=== PATIENT | female | born 1935 | race Two or more races ===

== ENCOUNTER 2018-04-25 09:47 | Inpatient (IN) | payer MEDICARE, OTHER ==
[~2018-04-25] VITALS: Ht 157.5 cm; Wt 68.0 kg
--- NOTE | 2018-04-25 09:47 | NUR ---
PT BIB SISTER C/O SOB, PT IS AAOX3, NOT IN RESPIRATORY DISTRESS, NOTED ELVATED BP, HOOKED TO MONITOR KEPT RESTED AND COMFORTABLE. WILL CONTINUE TO MONITOR.
--- NOTE | 2018-04-25 09:49 | NUR ---
DR. BRASHER AT BEDSIDE FOR EVAL.
--- NOTE | 2018-04-25 10:09 | NUR ---
IV LINE ESTABLISHED, LABSDRAWNED AND SENT TO LAB. AWAITING RESULTS.
[2018-04-25 10:26] LABS: BASOPHILS % (AUTO) 0.8 % (0.0-2.0); EOSINOPHILS % (AUTO) 4.2 % (0.0-6.0); HEMATOCRIT 37 % (33-45); HEMOGLOBIN 12.5 g/dL (11.5-14.8); LYMPHOCYTES # (AUTO) 1.2 /CMM (0.8-4.8); LYMPHOCYTES % (AUTO) 27.8 % (20.0-44.0); MEAN CORPUSCULAR HGB CONC 34 g/dl (31.0-36.0); MEAN CORPUSCULAR VOLUME 91 fL (82-100); MONOCYTES # (AUTO) 0.3 /CMM (0.1-1.30); MONOCYTES % (AUTO) 6.7 % (2.0-12.0); NEUTROPHILS # (AUTO) 2.7 /CMM (1.8-8.9); NEUTROPHILS % (AUTO) 60.5 % (43.0-81.0); PLATELET COUNT (AUTO) 192 /CMM (150-450); RED BLOOD CELL COUNT(AUTO) 4.08 MIL/uL (4.0-5.2); WHITE BLOOD COUNT (AUTO) 4.4 K/uL (4.3-11.0)
--- NOTE | 2018-04-25 10:32 | NUR ---
SHAFT MECHANIC AT BEDSIDE FOR XRAY.
[2018-04-25 11:12] LABS: CALCIUM, SERUM 9.3 mg/dL (8.5-10.1); CARBON DIOXIDE 25 mmol/L (21-32); CHLORIDE 104 mmol/L (98-107); CREATININE 1.5 mg/dL (0.6-1.3); GLUCOSE 332 mg/dL (74-106); POTASSIUM 4.2 mmol/L (3.5-5.1); SODIUM SERUM 137 mmol/L (136-145); UREA NITROGEN, BLOOD 30 mg/dL (7-18)
[2018-04-25 11:17] LABS: ALANINE AMINOTRANSFERASE 26 U/L (12-78); ALBUMIN 3.7 g/dL (3.4-5.0); ALKALINE PHOSPHATASE 113 U/L (46-116); ASPARTATE AMINOTRANSFERASE 15 U/L (15-37); BILIRUBIN,DIRECT 0.1 mg/dL (0.0-0.2); BILIRUBIN,TOTAL 0.3 mg/dL (0.2-1.0); TOTAL PROTEIN, SERUM 7.5 g/dL (6.4-8.2)
[2018-04-25 11:50] LABS: APPEARANCE,URINE Clear (CLEAR); BILIRUBIN,URINE Negative (NEGATIVE); BLOOD, URINE Negative Ery/uL (NEGATIVE); COLOR,URINE Yellow (YELLOW); KETONES,URINE Negative (NEGATIVE); LEUKOCYTE ESTERASE ,URINE Trace (NEGATIVE); NITRITE, URINE Negative (NEGATIVE); PH,URINE 5.5 (5.0-8.0); PROTEIN,URINE Negative (NEGATIVE); UGLUCOSE 500 MG/DL mg/dL (NEGATIVE); UROBILINOGEN,URINE 0.2 EU/dL (0.2)
[2018-04-25 11:58] LABS: BACTERIA,URINE 1+ /HPF (None Seen); RBC,URINE NONE SEEN /HPF (0-2); SQUAMOUS EPITHELIAL CELL,UR Few /HPF (None Seen)
--- NOTE | 2018-04-25 12:11 | NUR ---
CALLED NURSING SUP REQUESTED TELE BED
[2018-04-25] MEDS ORDERED: GLIP10TA11 PO (12:42)
[2018-04-25] MEDS ORDERED: LIPA1CAP15 PO (12:42)
[2018-04-25] MEDS ORDERED: ATOR40TA PO (12:42)
[2018-04-25] MEDS ORDERED: SITA100T PO (12:42)
[2018-04-25] MEDS ORDERED: METF-442 PO (12:42)
[2018-04-25] MEDS ORDERED: BENA10TA9 PO (12:42)
--- NOTE | 2018-04-25 12:46 | NUR ---
ADMIT TO TELE ROOM 323-2 DX SOB ACCEPTING LIZZ BROWN
--- NOTE | 2018-04-25 13:02 | NUR ---
REPORT GIVEN TO DUKE MICHEL FOR BLAYNE.
--- NOTE | 2018-04-25 13:25 | NUR ---
NYLON OPERATOR NOTES RECEIVED PT FROM E.R. STAFF VIA TAYLOR, AWAKE, ALERT AND ORIENTED, PT ABLE TO WALK TO BED, WITH STEADY GAIT, ASSISTED TO BED, MADE COMFORTABLE, PT ACCOMPANIED BY SISTER IZABELA, ROOM SET UP ORIENTATION PROVIDED TO PT, VERBALIZED UNDERSTANDING, VITAL SIGNS TAKEN AND RECORDED, AWAITING ADMITTING ORDERS FROM DR. BROWN.
[2018-04-25 13:30] VITALS: BP 158/84
[2018-04-25 16:00] VITALS: BP 136/78
--- NOTE | 2018-04-25 17:00 | NUR ---
PRODUCTION STAFF WORKER NOTES RECEIVED ORDER FROM MD TO START ACCUCHECK WITH MILD SLIDING SCALE, STILL AWAITING OTHER ADMITTING ORDERS FROM DR. BROWN.
[2018-04-25] MEDS ORDERED: DEXTROSE 50%-WATER 50 ML DISP.SYRIN IV PRN (17:30)
[2018-04-25] MEDS: BLOOD SUGAR DIAGNOSTIC 1 EACH STRIP IN SCH ×2 (17:35→21:50)
[2018-04-25] MEDS ORDERED: IV NS 0.9% 1,000 ML IV PRN (18:12)
[2018-04-25] MEDS: INSULIN REGULAR, HUMAN 100 UNIT/ML 3 ML VIAL SQ PRN (18:13)
[2018-04-25] MEDS ORDERED: ENOXAPARIN SODIUM 40 MG/0.4 ML DISP.SYRIN SQ SCH (18:30)
[2018-04-25] MEDS ORDERED: Z GUARD REMEDY 2 OZ OINT TP PRN (18:30)
[2018-04-25] MEDS ORDERED: ONDANSETRON HCL/PF 4 MG/2 ML VIAL IVP PRN (18:30)
[2018-04-25] MEDS ORDERED: ACETAMINOPHEN 325 MG TABLET PO PRN (18:30)
--- NOTE | 2018-04-25 18:31 | NUR ---
ORE SAMPLER NOTES Patient received on room air, patient is on tele monitoring, blood sugar check done, patient compliant with medications, no complaints of sob or ventilatory distress noted, call light within reach. Admitting orders received from .
--- NOTE | 2018-04-25 19:15 | NUR ---
VOLUNTEER RECRUITMENT COORDINATOR NOTES Received pt in bed awake, a/o x3, and on room air. Pt on tele monitoring @sinus 72. Pt ambulatory with BRP. No complaints of sob or acute distress noted. No complaints of pain at this time. Call light within reach. Will continue to monitor.
[2018-04-25 20:00] VITALS: BP 165/76
[2018-04-25] MEDS ORDERED: ATORVASTATIN 40 MG TABLET PO SCH (22:00)
[2018-04-26] VITALS: BP 128/64
[2018-04-26 04:00] VITALS: BP 189/95
[2018-04-26] MEDS ORDERED: CLONIDINE HCL 0.1 MG TABLET PO ONE (06:20)
--- NOTE | 2018-04-26 07:10 | NUR ---
MS RN NOTES PATIENT IN BED ALERT ORIENTED X 3. NO ACUTE DISTRESS NOTED. BREATHING UNLABORED. NO SOB NOTED. DENIED ANY PAIN. IV ACCESS PATENT AND INTACT, NO REDNESS OR SWELLING NOTED. SAFETY MEASURES IN PLACE. CALL LIGHT WITHIN REACH. WILL CONTINUE TO MONITOR ACCORDINGLY.
--- NOTE | 2018-04-26 07:11 | NUR ---
LINOTYPER NOTES PT IN BED AWAKE AND A/O x3. PT ON TELE MONITORING @SINUS 66. NO COMPLAINTS OF PAIN AT THIS TIME. NO S/S OF ACUTE DISTRESS OR SOB THROUGHOUT SHIFT. CALL LIGHT WITHIN REACH. WILL ENDORSE TO ONCOMING NURSE FOR CONTINUATION OF CARE.
[2018-04-26] MEDS: BLOOD SUGAR DIAGNOSTIC 1 EACH STRIP IN SCH ×2 (07:16→12:18)
[2018-04-26 07:31] LABS: BASOPHILS % (AUTO) 0.6 % (0.0-2.0); EOSINOPHILS % (AUTO) 4.2 % (0.0-6.0); HEMATOCRIT 37 % (33-45); HEMOGLOBIN 12.4 g/dL (11.5-14.8); LYMPHOCYTES # (AUTO) 1.1 /CMM (0.8-4.8); MEAN CORPUSCULAR HGB CONC 34 g/dl (31.0-36.0); MEAN CORPUSCULAR VOLUME 90 fL (82-100); MONOCYTES # (AUTO) 0.3 /CMM (0.1-1.30); MONOCYTES % (AUTO) 7.3 % (2.0-12.0); NEUTROPHILS % (AUTO) 63.9 % (43.0-81.0); PLATELET COUNT (AUTO) 176 /CMM (150-450); RED BLOOD CELL COUNT(AUTO) 4.08 MIL/uL (4.0-5.2); WHITE BLOOD COUNT (AUTO) 4.8 K/uL (4.3-11.0)
[2018-04-26 08:00] VITALS: BP 99/60
[2018-04-26] MEDS ORDERED: LINAGLIPTIN 5 MG TABLET PO SCH (09:00)
[2018-04-26] MEDS ORDERED: BENAZEPRIL HCL 10 MG TABLET PO SCH (09:00)
[2018-04-26] MEDS ORDERED: glipiZIDE 10 MG TABLET PO SCH (09:00)
[2018-04-26 09:15] LABS: CHOLESTEROL 148 mg/dL (<200); HDL CHOLESTEROL 44 mg/dL (40-60); LDL 85 mg/dL (0-99); TRIGLYCERIDES 138 mg/dL (30-150)
[2018-04-26 09:16] LABS: ALANINE AMINOTRANSFERASE 29 U/L (12-78); ALKALINE PHOSPHATASE 82 U/L (46-116); ASPARTATE AMINOTRANSFERASE 16 U/L (15-37); BILIRUBIN,TOTAL 0.4 mg/dL (0.2-1.0); CALCIUM, SERUM 9.2 mg/dL (8.5-10.1); CARBON DIOXIDE 23 mmol/L (21-32); CHLORIDE 104 mmol/L (98-107); CREATININE 1.4 mg/dL (0.6-1.3); GLUCOSE 287 mg/dL (74-106); PHOSPHORUS 3.7 mg/dL (2.5-4.9); POTASSIUM 4.6 mmol/L (3.5-5.1); SODIUM SERUM 141 mmol/L (136-145); UREA NITROGEN, BLOOD 27 mg/dL (7-18)
[2018-04-26 09:17] LABS: ALBUMIN 3.2 g/dL (3.4-5.0); MAGNESIUM 1.6 mg/dL (1.8-2.4); TOTAL PROTEIN, SERUM 6.7 g/dL (6.4-8.2)
[2018-04-26] MEDS: LIPASE/PROTEASE/AMYLASE 1 EACH CAPSULE.DR PO SCH ×2 (11:09→13:55)
[2018-04-26] MEDS: INSULIN REGULAR, HUMAN 100 UNIT/ML 3 ML VIAL SQ PRN (12:21)
--- NOTE | 2018-04-26 13:55 | NUR ---
MS RN NOTES CLARIFIED WITH DR LIZZ BROWN REGARDING PANCREAZE CAPSULE ADMINISTRATION MADE AWARE THAT EARLIER DOSE GIVEN AT 1109 DUE TO MEDICATION NOT AVAILABLE EARLIER, SAID ITS OK FOR NEXT DOSE GIVEN SCHEDULED.
--- NOTE | 2018-04-26 14:27 | NUR ---
MS RN NOTES SEEN AND EVALUATED BY DR LIZZ BROWN WITH NEW ORDERS MADE, NOTED AND CARRIED OUT.
[2018-04-26] MEDS ORDERED: MAGNESIUM OXIDE 400 MG TABLET PO ONE (15:00)
--- NOTE | 2018-04-26 15:30 | NUR ---
MS SUB ASSEMBLY TEAM WORKER NOTES PATIENT DISCHARGE HOME WITH SISTER ALOK WITH STABLE VITAL SIGNS. NO ACUTE DISTRESS NOTED. BREATHING UNLABORED. NO SOB NOTED. DISCHARGE INSTRUCTIONS GIVEN TO THE PATIENT INCLUDING FOLLOW UP WITH PRIMARY DOCTOR AND NEW PRESCRIPTION, VERBALIZED UNDERSTANDING. ALL BELONGINGS ACCOUNTED FOR. SKIN IS INTACT. IV ACCESS REMOVED, NO BLEEDING OR REDNESS OR SWELLING NOTED. WHEELED TO THE LOBBY, ASSISTED TO A PRIVATE CAR IN STABLE CONDITION.
== END 2018-04-26 15:58 | disposition home or self-care (01) | DRG 637 ==
LOC: ER 09:49 → TELE 12:56 → MED 04-26 15:54
PROVIDERS: ADMIT Nurse Practitioner Acute Care; ATTEND Nurse Practitioner Acute Care
DX: E11.65 Type 2 diabetes mellitus with hyperglycemia (principal); N17.0 Acute kidney failure with tubular necrosis; F41.9 Anxiety disorder, unspecified; I10 Essential (primary) hypertension; I25.10 Atherosclerotic heart disease of native coronary artery without angina pectoris; Z95.1 Presence of aortocoronary bypass graft; Z79.84 Long term (current) use of oral hypoglycemic drugs; Z91.14 Patient's other noncompliance with medication regimen
CPT/HCPCS: 36415; 71045-TC; 80048-TC; 80053-TC; 80061-TC; 80076-TC; 81000-TC; 82962-TC; 83735-TC; 84100-TC; 84484-TC; 85025-TC; 85730-TC; 87081-TC; 87086-TC; G0378; J1650; J1815; J7030

== ENCOUNTER 2018-10-26 19:32 | Emergency (ER) | payer MEDICARE, OTHER ==
[~2018-10-26] VITALS: Ht 154.9 cm; Wt 83.9 kg
[~2018-10-26 19:32] MED LIST: ATOR40TA PO; BENA10TA11 PO; GLIP10TA11 PO; LIPA1CAP15 PO; METF-442 PO; SITA100T PO
--- NOTE | 2018-10-26 19:42 | NUR ---
CALLED PT TO BE TRIAGED, NO ANSWER
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
[2018-10-26] MEDS ORDERED: IV NS 0.9% 1,000 ML BAG IV ONE (20:00)
[2018-10-26 20:11] LABS: BASOPHILS % (AUTO) 0.5 % (0.0-2.0); EOSINOPHILS % (AUTO) 0.6 % (0.0-6.0); HEMATOCRIT 36 % (33-45); HEMOGLOBIN 11.8 g/dL (11.5-14.8); LYMPHOCYTES # (AUTO) 0.6 /CMM (0.8-4.8); LYMPHOCYTES % (AUTO) 10.4 % (20.0-44.0); MEAN CORPUSCULAR HGB CONC 33 g/dl (31.0-36.0); MEAN CORPUSCULAR VOLUME 95 fL (82-100); MONOCYTES # (AUTO) 0.3 /CMM (0.1-1.30); MONOCYTES % (AUTO) 5.3 % (2.0-12.0); NEUTROPHILS # (AUTO) 5.2 /CMM (1.8-8.9); NEUTROPHILS % (AUTO) 83.2 % (43.0-81.0); PLATELET COUNT (AUTO) 136 /CMM (150-450); RED BLOOD CELL COUNT(AUTO) 3.77 MIL/uL (4.0-5.2); WHITE BLOOD COUNT (AUTO) 6.2 K/uL (4.3-11.0)
--- NOTE | 2018-10-26 20:13 | NUR ---
PT UNABLE TO PROVIDE URINE SAMPLE AT THIS TIME. WILL F/U AGAIN.
[2018-10-26 20:21] LABS: CALCIUM, SERUM 9.3 mg/dL (8.5-10.1); CARBON DIOXIDE 23 mmol/L (21-32); CHLORIDE 107 mmol/L (98-107); CREATININE 1.6 mg/dL (0.6-1.3); GLUCOSE 131 mg/dL (74-106); POTASSIUM 4.3 mmol/L (3.5-5.1); SODIUM SERUM 141 mmol/L (136-145); UREA NITROGEN, BLOOD 44 mg/dL (7-18)
[2018-10-26 20:26] LABS: ALANINE AMINOTRANSFERASE 20 U/L (12-78); ALBUMIN 3.9 g/dL (3.4-5.0); ALKALINE PHOSPHATASE 81 U/L (46-116); ASPARTATE AMINOTRANSFERASE 17 U/L (15-37); BILIRUBIN,DIRECT 0.1 mg/dL (0.0-0.2); BILIRUBIN,TOTAL 0.3 mg/dL (0.2-1.0); TOTAL PROTEIN, SERUM 7.2 g/dL (6.4-8.2)
[2018-10-26 20:36] LABS: SERUM AMMONIA 14 umol/L (11-32); THYROID STIMULATING HORMONE 1.854 uIU/mL (0.358-3.74)
--- NOTE | 2018-10-26 21:20 | NUR ---
PT WAS ASSISTED TO THE BATHROOM BUT STILL UNABLE TO PROVIDE URINE SAMPLE. AWARE.
[2018-10-26 22:00] LABS: APPEARANCE,URINE Clear (CLEAR); BILIRUBIN,URINE Negative (NEGATIVE); BLOOD, URINE Negative Ery/uL (NEGATIVE); COLOR,URINE Yellow (YELLOW); KETONES,URINE Negative (NEGATIVE); LEUKOCYTE ESTERASE ,URINE Small (NEGATIVE); NITRITE, URINE Negative (NEGATIVE); PROTEIN,URINE Negative (NEGATIVE); UGLUCOSE Negative (NEGATIVE); UROBILINOGEN,URINE 0.2 EU/dL (0.2)
[2018-10-26 22:09] LABS: BACTERIA,URINE Few /HPF (None Seen); RBC,URINE 0-2 /HPF (0-2); SQUAMOUS EPITHELIAL CELL,UR Many /HPF (None Seen)
[2018-10-26] MEDS ORDERED: NITROFURANTOIN/NITROFURAN MAC 100 MG CAPSULE PO ONE (22:30)
[2018-10-26] MEDS ORDERED: NITROFURANTOIN/NITROFURAN MAC 100 MG CAPSULE ONE (22:32)
--- NOTE | 2018-10-26 22:42 | NUR ---
IV removed. Catheter intact and site benign. Pressure and 4x4 applied to site. No bleeding noted.Patient discharged to home in stable condition. Rx and Written and verbal after care instructions given. Patient verbalizes understanding of instruction.
[2018-10-27 00:14] VITALS: BP 132/67
== END 2018-10-26 22:42 | disposition home or self-care (01) ==
LOC: ER 19:38
DX: E86.0 Dehydration (principal); I10 Essential (primary) hypertension; E11.9 Type 2 diabetes mellitus without complications; Z95.818 Presence of other cardiac implants and grafts; Z79.84 Long term (current) use of oral hypoglycemic drugs; Z79.899 Other long term (current) drug therapy
CPT/HCPCS: 36415; 70450; 71045; 80048; 80076; 81001; 82140; 82962; 84443; 84484; 85025; 87086; 93005; 96360; 99284; J7030; 81000-TC

== ENCOUNTER 2018-11-25 03:54 | Inpatient (IN) | payer MEDICARE, OTHER ==
[~2018-11-25] VITALS: Ht 160 cm; Wt 84.4 kg
--- NOTE | 2018-11-25 04:12 | NUR ---
BIBSELF WITH FAMILY FROM [facility] TO ER BED 9. AAOX4, NO RESP DISTRESS NOTED. AMBULATORY. C/O L FLANK PAIN. PT REPORTS PAIN 9/10. SHARP ACHING PAIN. DENIES NVD. DENIES CP. AWAITING MD FOR EVAL. UNABLE TO COLLECT URINE AT THIS TIME, PT CANT URINATED AT THIS TIME.
--- NOTE | 2018-11-25 04:48 | NUR ---
PT STIL UNABLE TO GIVE URINE AT THIS TIME, FLUIDS GIVEN TO PROMOTE URINATION
--- NOTE | 2018-11-25 05:25 | NUR ---
PT AMBULATED TO BATHROOM ON STEADY GAIT. PT HAD A HUGE BOWEL MOVEMENT REPORTED BY CONDITIONING COACH WHO ASSISTED PT. SHE WAS SUPPOSED TO GIVE URINE BUT INSTEAD SHE HAD A BM. PT REPORTS THAT AFTER HAVING A BOWEL MOVEMENT, HER PAIN GOT RELIEVE. STILL C/O MILD PAIN BUT NOT BAD WHEN SHE CAME IN. MADE AWARE
[2018-11-25] MEDS ORDERED: MORPHINE SULFATE INJ 2 MG/ML DISP.SYRIN IV ONE (05:30)
[2018-11-25] MEDS ORDERED: ONDANSETRON HCL/PF 4 MG/2 ML VIAL IVP ONE (05:30)
[2018-11-25] MEDS ORDERED: IV NS 0.9% 500 ML BAG IV ONE (05:30)
[2018-11-25 05:43] LABS: BASOPHILS % (AUTO) 0.9 % (0.0-2.0); EOSINOPHILS % (AUTO) 4.8 % (0.0-6.0); HEMATOCRIT 35 % (33-45); HEMOGLOBIN 11.8 g/dL (11.5-14.8); LYMPHOCYTES # (AUTO) 1.2 /CMM (0.8-4.8); LYMPHOCYTES % (AUTO) 22.5 % (20.0-44.0); MEAN CORPUSCULAR HGB CONC 34 g/dl (31.0-36.0); MEAN CORPUSCULAR VOLUME 93 fL (82-100); MONOCYTES # (AUTO) 0.4 /CMM (0.1-1.30); MONOCYTES % (AUTO) 8.4 % (2.0-12.0); NEUTROPHILS # (AUTO) 3.4 /CMM (1.8-8.9); NEUTROPHILS % (AUTO) 63.4 % (43.0-81.0); PLATELET COUNT (AUTO) 164 /CMM (150-450); RED BLOOD CELL COUNT(AUTO) 3.73 MIL/uL (4.0-5.2); WHITE BLOOD COUNT (AUTO) 5.3 K/uL (4.3-11.0)
[2018-11-25 05:50] LABS: CALCIUM, SERUM 9.4 mg/dL (8.5-10.1); CARBON DIOXIDE 27 mmol/L (21-32); CHLORIDE 104 mmol/L (98-107); CREATININE 1.4 mg/dL (0.6-1.3); GLUCOSE 157 mg/dL (74-106); POTASSIUM 3.8 mmol/L (3.5-5.1); SODIUM SERUM 139 mmol/L (136-145); UREA NITROGEN, BLOOD 21 mg/dL (7-18)
[2018-11-25 05:51] LABS: LIPASE 173 U/L (73-393)
[2018-11-25] MEDS ORDERED: MORPHINE SULFATE INJ 4 MG/ML DISP.SYRIN ONE (06:02)
[2018-11-25] MEDS ORDERED: ONDANSETRON HCL/PF 4 MG/2 ML VIAL ONE (06:02)
[2018-11-25 06:26] LABS: APPEARANCE,URINE Clear (CLEAR); BILIRUBIN,URINE Negative (NEGATIVE); BLOOD, URINE Negative Ery/uL (NEGATIVE); COLOR,URINE Yellow (YELLOW); KETONES,URINE Negative (NEGATIVE); LEUKOCYTE ESTERASE ,URINE Negative (NEGATIVE); NITRITE, URINE Negative (NEGATIVE); PROTEIN,URINE Trace mg/dl (NEGATIVE); UGLUCOSE Negative (NEGATIVE); UROBILINOGEN,URINE 0.2 EU/dL (0.2)
[2018-11-25 06:34] LABS: BACTERIA,URINE Rare /HPF (None Seen); RBC,URINE 0-2 /HPF (0-2); SQUAMOUS EPITHELIAL CELL,UR 0-2 /HPF (None Seen); WBC,URINE 0-2 /HPF (0-3)
--- NOTE | 2018-11-25 07:24 | NUR ---
ASSESSED PT ON BED AAOX4, NOT IN RESPIRATORY DISTRESS, AWAITING ADMISSION, WILL CONTINUE TO MONITOR.
--- NOTE | 2018-11-25 08:07 | NUR ---
PAGED [facility].
[2018-11-25] MEDS ORDERED: IV NS 0.9% 1,000 ML IV PRN (08:13)
--- NOTE | 2018-11-25 08:24 | NUR ---
REPORT GIVEN TO DUKE PRUITT FOR BLAYNE.
[2018-11-25] MEDS ORDERED: MAG HYDROX/AL HYDROX/SIMETH 30 ML UDC PO PRN (08:30)
[2018-11-25] MEDS ORDERED: ASPIRIN 81 MG TAB.CHEW PO ONE (08:30)
[2018-11-25] MEDS ORDERED: ACETAMINOPHEN 325 MG TABLET PO PRN (08:30)
[2018-11-25] MEDS ORDERED: MAGNESIUM HYDROXIDE 30 ML UDC PO PRN (08:30)
[2018-11-25] MEDS ORDERED: MORPHINE SULFATE INJ 2 MG/ML DISP.SYRIN IV PRN (08:30)
[2018-11-25] MEDS ORDERED: hydrALAZINE HCL IV 20 MG VIAL IV PRN (08:30)
[2018-11-25] MEDS ORDERED: ONDANSETRON HCL/PF 4 MG/2 ML VIAL IVP PRN (08:30)
[2018-11-25] MEDS ORDERED: DEXTROSE 50%-WATER 50 ML DISP.SYRIN IV PRN (08:30)
[2018-11-25] MEDS ORDERED: Z GUARD REMEDY 2 OZ OINT TP PRN (08:30)
--- NOTE | 2018-11-25 08:57 | NUR ---
fe pt. adm. to rm. [phone].sister here and relates pt. has dementia.sister given internal med md name as well as ferry captain.hooked up to tele and rhythm sr rate of 77.questioned regarding skin status,denies any problems,does not want skin check.
[2018-11-25 09:15] VITALS: BP 152/73
[2018-11-25] MEDS: METOPROLOL TARTRATE 25 MG TABLET PO SCH ×2 (10:37→17:50)
[2018-11-25] MEDS: BENAZEPRIL HCL 10 MG TABLET PO SCH (10:37)
[2018-11-25] MEDS: TAMSULOSIN 0.4 MG CAP.SR.24H PO SCH (10:38)
[2018-11-25] MEDS: BLOOD SUGAR DIAGNOSTIC 1 EACH STRIP VI SCH ×3 (12:31→22:28)
[2018-11-25] MEDS: LIPASE/PROTEASE/AMYLASE 1 EACH CAPSULE.DR PO SCH ×2 (14:11→17:49)
[2018-11-25 16:00] VITALS: BP 149/77
--- NOTE | 2018-11-25 16:47 | NUR ---
urine sent as per orders.
--- NOTE | 2018-11-25 18:00 | NUR ---
siaster in to visit.
[2018-11-25] MEDS: *INSULIN REGULAR(HUMULIN R)HUM 100 UNIT/ML VIAL SQ PRN (18:18)
[2018-11-25 19:26] LABS: CREATININE, URINE 101.5 MG/DL (30.0-125.0); URINE TOTAL PROTEIN 36.5 mg/dL (0-11.9)
[2018-11-25 20:00] VITALS: BP 129/70
--- NOTE | 2018-11-25 20:43 | NUR ---
MS/RN ON INITIAL SHIFT ROUNDING AT 1930, PATIENT WAS IN BED AWAKE, ALERT, ORIENTED, FORGETFUL, NO C/O PAIN, NO DISTRESS NOTED, IV WAS OUT, INSERTED NE IV AT RT. KALYANI Ponce 22. WILL MONITOR.
[2018-11-25 21:14] LABS: EOSINOPHIL,URINE None Seen
[2018-11-25 21:23] LABS: APPEARANCE,URINE Clear (CLEAR); BILIRUBIN,URINE Negative (NEGATIVE); BLOOD, URINE Negative Ery/uL (NEGATIVE); COLOR,URINE Yellow (YELLOW); KETONES,URINE Negative (NEGATIVE); LEUKOCYTE ESTERASE ,URINE Negative (NEGATIVE); NITRITE, URINE Negative (NEGATIVE); PH,URINE 5.5 (5.0-8.0); PROTEIN,URINE 30 mg/dl (NEGATIVE); UGLUCOSE Negative (NEGATIVE); UROBILINOGEN,URINE 0.2 EU/dL (0.2)
[2018-11-25 21:58] LABS: BACTERIA,URINE Few /HPF (None Seen); RBC,URINE 0-2 /HPF (0-2); SQUAMOUS EPITHELIAL CELL,UR Few /HPF (None Seen); WBC,URINE 0-2 /HPF (0-3)
[2018-11-25] MEDS: ATORVASTATIN 40 MG TABLET PO SCH (22:00)
[2018-11-26] VITALS: BP 147/73
--- NOTE | 2018-11-26 00:24 | NUR ---
MS/RN PATIENT PULLED OUT HER IV AT AROUND 2300, REFUSED IV INSERTION AT THIS TIME, PATIENT ALSO REFUSED TELE BOX.
[2018-11-26 04:00] VITALS: BP 182/79
--- NOTE | 2018-11-26 05:00 | NUR ---
MS/RN PATIENT AGREED FOR IV INSERTION, IV G22 WAS INSERTED BY DUKE ILSAS.
--- NOTE | 2018-11-26 05:20 | NUR ---
MS/RN BP 165/82, HYDRALAZINE 10 MG IVP WAS GIVEN ORDERED. WILL RECHECK BP.
[2018-11-26] MEDS: HYDROCODONE/APAP 5/325MG 1 EACH TABLET PO PRN (06:14)
[2018-11-26 06:27] LABS: BASOPHILS % (AUTO) 0.5 % (0.0-2.0); EOSINOPHILS % (AUTO) 5.3 % (0.0-6.0); HEMATOCRIT 36 % (33-45); HEMOGLOBIN 12.1 g/dL (11.5-14.8); LYMPHOCYTES # (AUTO) 1.2 /CMM (0.8-4.8); LYMPHOCYTES % (AUTO) 24.6 % (20.0-44.0); MEAN CORPUSCULAR HGB CONC 34 g/dl (31.0-36.0); MEAN CORPUSCULAR VOLUME 93 fL (82-100); MONOCYTES # (AUTO) 0.4 /CMM (0.1-1.30); MONOCYTES % (AUTO) 7.8 % (2.0-12.0); NEUTROPHILS % (AUTO) 61.8 % (43.0-81.0); PLATELET COUNT (AUTO) 159 /CMM (150-450); RED BLOOD CELL COUNT(AUTO) 3.86 MIL/uL (4.0-5.2); WHITE BLOOD COUNT (AUTO) 4.9 K/uL (4.3-11.0)
[2018-11-26] MEDS: INSULIN REGULAR, HUMAN 100 UNIT/ML 3 ML VIAL SQ PRN ×3 (06:34→17:28)
[2018-11-26 06:37] LABS: ALBUMIN 3.7 g/dL (3.4-5.0); BILIRUBIN,TOTAL 0.4 mg/dL (0.2-1.0); CALCIUM, SERUM 9.3 mg/dL (8.5-10.1); CREATININE 1.3 mg/dL (0.6-1.3); MAGNESIUM 1.6 mg/dL (1.8-2.4); PHOSPHORUS 3.3 mg/dL (2.5-4.9); TOTAL PROTEIN, SERUM 7.1 g/dL (6.4-8.2)
[2018-11-26 06:38] VITALS: BP 123/73
--- NOTE | 2018-11-26 06:48 | NUR ---
MS/RN APPEAR SLEEPING AT THIS TIME, APPEAR COMFORTABLE, NO SIGNS OF DISTRESS NOTED, ALL NEEDS ATTENDED AT THIS TIME, WILL CONTINUE TO MONITOR.
[2018-11-26] MEDS: BLOOD SUGAR DIAGNOSTIC 1 EACH STRIP VI SCH ×4 (06:50→22:31)
--- NOTE | 2018-11-26 07:30 | NUR ---
RN MS NOTES PT IN BED, ASLEEP, EASY TO AROUSE, ALERT AND ORIENTED, STATED THAT SHE WAS HAPPY THAT SHE HAD SOME SLEEP, NO COMPLAINT OF PAIN OR ANY DISCOMFORT, RESPIRATIONS NORMAL, IV FLUIDS INFUSING WELL, CALL LIGHT WITHIN REACH, NEEDS ATTENDED.
[2018-11-26 08:00] VITALS: BP 116/66
[2018-11-26] MEDS: PANTOPRAZOLE 40 MG TABLET.DR PO SCH (08:05)
[2018-11-26] MEDS: TAMSULOSIN 0.4 MG CAP.SR.24H PO SCH (08:11)
[2018-11-26] MEDS: LIPASE/PROTEASE/AMYLASE 1 EACH CAPSULE.DR PO SCH ×3 (08:11→17:18)
[2018-11-26] MEDS: ASPIRIN 325 MG TABLET PO SCH (08:11)
[2018-11-26] MEDS: METOPROLOL TARTRATE 25 MG TABLET PO SCH ×2 (08:12→16:27)
[2018-11-26] MEDS: BENAZEPRIL HCL 10 MG TABLET PO SCH (08:12)
[2018-11-26] MEDS: Magnesium 1GM/D5W 100ML PREMIX 100 ML IV SCH ×2 (10:16→11:35)
--- NOTE | 2018-11-26 13:00 | NUR ---
RN MS NOTES PT IN BED, AWAKE, ALERT AND ORIENTED, NO COMPLAINT OF PAIN OR ANY DISCOMFORT, IV FLUIDS INFUSING WELL, NOTED WITH GOOD APPETITE, ABLE TO WALK TO THE BATHROOM WITH STEADY GAIT, SAFETY PRECAUTIONS OBSERVED.
[2018-11-26 16:00] VITALS: BP 118/65
--- NOTE | 2018-11-26 18:02 | NUR ---
RN MS NOTES PT IN BED, AWAKE, ALERT AND ORIENTED, NO COMPLAINT OF PAIN AT THIS TIME, RESPIRATIONS NORMAL, CALL LIGHT WITHIN REACH, IV FLUIDS INFUSING WELL, VISITED BY SISTER, PM CARE PROVIDED, ABLE TO WALK TO THE BATHROOM WITH STEADY GAIT, PM MEDS GIVEN ORDERED, ALL NEEDS ATTENDED.
--- NOTE | 2018-11-26 19:45 | NUR ---
RN NOTES RECEIVED PATIENT AWAKE, ALERT,NO SIGNS OF ACUTE DISTRESS NOTED. IV ACCESS ON HER RIGHT WRIST G#22 INTACT AND PATENT, SAFETY MEASURES IN PLACE, ASPIRATION PRECAUTION EMPHASIZED,BED IN LOW LOCKED POSITION, ALL NEEDS ANTICIPATED,WILL CONTINUE TO MONITOR ACCORDINGLY.
[2018-11-26 20:00] VITALS: BP 118/57
[2018-11-26] MEDS: ATORVASTATIN 40 MG TABLET PO SCH (22:27)
[2018-11-26] MEDS: *INSULIN REGULAR(HUMULIN R)HUM 100 UNIT/ML VIAL SQ PRN (22:34)
[2018-11-27] MEDS: HYDROCODONE/APAP 5/325MG 1 EACH TABLET PO PRN ×2 (01:55→09:28)
--- NOTE | 2018-11-27 01:55 | NUR ---
RN NOTES PATIENT COMPLAINTS OF GENERALIZED PAIN NORCO GIVEN PER PATIENT REQUEST PER MD ORDERED, WILL MONITOR.
--- NOTE | 2018-11-27 06:00 | NUR ---
RN NOTES PATIENT PULLED OUT HER IV ACCESS, NO SIGNS OF INFILTRATION NOTED, REFUSED IV INSERTION AT THIS TIME, WILL MONITOR.
[2018-11-27 06:56] LABS: CALCIUM, SERUM 9.1 mg/dL (8.5-10.1); CARBON DIOXIDE 23 mmol/L (21-32); CHLORIDE 105 mmol/L (98-107); CREATININE 1.6 mg/dL (0.6-1.3); GLUCOSE 139 mg/dL (74-106); MAGNESIUM 2.1 mg/dL (1.8-2.4); POTASSIUM 3.8 mmol/L (3.5-5.1); SODIUM SERUM 141 mmol/L (136-145); UREA NITROGEN, BLOOD 31 mg/dL (7-18)
--- NOTE | 2018-11-27 06:59 | NUR ---
RN NOTES ALL NEEDS ATTENDED AND MET, ABLE TO REST AND SLEPT AT INTERVALS,NO APPARENT DISTRESS NOTED.WILL ENDORSE TO AM NURSE FOR CONTINUITY OF CARE.
--- NOTE | 2018-11-27 07:27 | NUR ---
MS RN OPENING NOTES RECEIVED PT JUST WENT TO THE BATHROOM. A/O X3. AMBULATORY. PT TOLERATING RA, WITH NO ACUTE RESPIRATORY DISTRESS NOTED. PT DENIES PAIN OR ANY DISCOMFORT AT THIS TIME. PT ALSO DENIES QUESTIONS OR CONCERNS AT THIS MOMENT. PIV TO RIGHT WRIST, DISLODGE. PT STATING SHE DOESN'T NEED IT AND DOESN'T WANT IT ON AT THIS TIME. PT KEPT COMFORTABLE IN BED. CALL LIGHT KEPT WITHIN REACH. PT'S BED IN LOWEST, LOCKED POSITION WITH SR X2. WILL CONTINUE PLAN OF CARE.
[2018-11-27] MEDS ORDERED: IV NS 0.9% 1,000 ML IV PRN (07:32)
[2018-11-27] MEDS: BLOOD SUGAR DIAGNOSTIC 1 EACH STRIP VI SCH ×4 (07:38→22:13)
[2018-11-27] MEDS: PANTOPRAZOLE 40 MG TABLET.DR PO SCH (07:58)
[2018-11-27] MEDS: LIPASE/PROTEASE/AMYLASE 1 EACH CAPSULE.DR PO SCH ×3 (07:58→17:21)
[2018-11-27 08:00] VITALS: BP 129/64
[2018-11-27] MEDS: TAMSULOSIN 0.4 MG CAP.SR.24H PO SCH (08:17)
[2018-11-27] MEDS: ASPIRIN 325 MG TABLET PO SCH (08:17)
[2018-11-27] MEDS: BENAZEPRIL HCL 10 MG TABLET PO SCH (08:17)
[2018-11-27] MEDS: METOPROLOL TARTRATE 25 MG TABLET PO SCH ×2 (08:18→16:16)
[2018-11-27] MEDS ORDERED: METO25TA20 PO (10:19)
[2018-11-27] MEDS ORDERED: ASPI-1169 PO (10:19)
[2018-11-27] MEDS: INSULIN REGULAR, HUMAN 100 UNIT/ML 3 ML VIAL SQ PRN (11:21)
--- NOTE | 2018-11-27 14:00 | NUR ---
MS RN NOTES RN SPOKE TO AZEEM/ELEANOR REGARDING CONSULT. PER ELEANOR SHE CALLED THE SISTER TWICE, NO RESPONSE. AWAITING FOR CALL BACK. SEAN/BLU AWARE WELL.
--- NOTE | 2018-11-27 14:22 | NUR ---
MS RN NOTES CALLED SON/ERIK VIA PHONE, LEFT A MESSAGE REGARDING DISCHARGE. AWAITING FOR CALL BACK.
[2018-11-27 15:08] LABS: PTH, INTACT 24 pg/mL (15-65)
--- NOTE | 2018-11-27 15:20 | NUR ---
MS RN NOTES PT PULLED OUT PIV TO LFA G22. PT STATING SHE DOESN'T NEED IT. PT AWARE OF HER GOING HOME TODAY. AWAITING FOR SON'S CALL BACK. SEAN/BLU MADE AWARE WELL.
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
--- NOTE | 2018-11-27 18:48 | NUR ---
MS RN CLOSING NOTES PT IN BED, AWAKE. A/O X2-3, FORGETFUL. AMBULATORY. PT TOLERATING RA, WITH NO ACUTE RESPIRATORY DISTRESS NOTED. PT DENIES PAIN OR ANY DISCOMFORT AT THIS TIME. PT ALSO DENIES QUESTIONS OR CONCERNS AT THIS MOMENT. NO PIV NOTED, PT REFUSED IVF AND REINSERTION OF IV. PT STATING SHE DOESN'T NEED IT. PT SCHEDULED TO BE DISCHARGE TODAY, JUST RECEIVED A PHONE CALL FROM SISTER THAT IS NOT ABLE TO PICK HER UP TONIGHT, BUT WILL DO IN AM AROUND 9-10AM. ALL NEEDS ATTENDED. PT KEPT COMFORTABLE IN BED. CALL LIGHT KEPT WITHIN REACH. PT'S BED IN LOWEST, LOCKED POSITION WITH SR X2. WILL ENDORSE TO INCOMING NIGHT NURSE FOR BLAYNE.
--- NOTE | 2018-11-27 19:30 | NUR ---
MS RN OPENING NOTE RECEIVED PATIENT IN CHAIR. A/O X 2 - 3, FORGETFUL. TOLERATING ROOM AIR. RESPIRATIONS ARE EVEN AND UNLABORED. NO SOB NOTED. DENIES PAIN AT THIS TIME. NO APPARENT DISTRESS. NO IV ACCESS NOTED. BED IS LOW AND LOCKED, SIDE RAILS UP X2, HOB ELEVATED IN HIGH FOWLERS. CALL LIGHT WITHIN REACH. WILL CONTINUE TO MONITOR.
[2018-11-27 20:00] VITALS: BP 138/67
[2018-11-27] MEDS: ATORVASTATIN 40 MG TABLET PO SCH (21:56)
[2018-11-27] MEDS: *INSULIN REGULAR(HUMULIN R)HUM 100 UNIT/ML VIAL SQ PRN (22:17)
--- NOTE | 2018-11-28 00:27 | NUR ---
MS RN NOTE RECEIVED PT IN STABLE CONDITION A/O X 2-3. CURRENTLY IN BED, RESTING. NO SIGNS OF SOB OR DISTRESS, NO INDICATIONS OF PAIN. PT NOTED WITH NO IV ACCESS, FLAVIA WALL WILL PLACE A NEW LINE. ALL CURRENT NEEDS ATTENDED TO. BED LOW, LOCKED, UPPER RAILS UP, AND CALL LIGHT WITHIN REACH. WILL CONT. TO MONITOR.
--- NOTE | 2018-11-28 00:30 | NUR ---
MS RN NOTE GAVE REPORT TO CONTINUE CARE TO MARCO A WALL. ALSO ATTEMPTED TO PLACE IV AT THIS TIME. PATIENT IS REFUSING. 3 NURSES ATTEMPTED. PATIENT STILL REFUSED. MARCO A WILL NOTIFY .
--- NOTE | 2018-11-28 01:40 | NUR ---
MS RN NOTE PT VERBALIZING SHE DOES NOT WANT NEW IV TO BE PLACED. ATTEMPTED TO PUT 3X. GINO FLOYD NOTIFIED. NO NEW ORDERS.
[2018-11-28] MEDS: INSULIN REGULAR, HUMAN 100 UNIT/ML 3 ML VIAL SQ PRN (06:06)
--- NOTE | 2018-11-28 06:13 | NUR ---
MS RN NOTE PT REMAINS N STABLE CONDITION A/O X 2-3. CURRENTLY IN BED, RESTING. NO SIGNS OF SOB OR DISTRESS, NO INDICATIONS OF PAIN. PT NOTED WITH NO IV ACCESS, MD AWARE. ALL CURRENT NEEDS ATTENDED TO. BED LOW, LOCKED, UPPER RAILS UP, AND CALL LIGHT WITHIN REACH. WILL CONT. TO MONITOR AND ENDORSE TO NEXT SHIFT FOR BLAYNE.
[2018-11-28] MEDS: BLOOD SUGAR DIAGNOSTIC 1 EACH STRIP VI SCH (06:33)
--- NOTE | 2018-11-28 07:15 | NUR ---
MS RN OPENING NOTES RECEIVED PT IN BED, ASLEEP, EASILY AROUSED. A/O X3. PT TOLERATING RA, WITH NO ACUTE RESPIRATORY DISTRESS NOTED. PT DENIES PAIN OR ANY DISCOMFORT AT THIS TIME.NO PIV NOTED, PT STILL REFUSED TO HAVE IT IN. PT AWARE OF BEING DISCHARGE TODAY AND WILL BE PICKED UP BY SISTER IZABELA. PT KEPT COMFORTABLE IN BED. CALL LIGHT KEPT WITHIN REACH. PT'S BED IN LOWEST, LOCKED POSITION WITH SR X2. WILL CONTINUE PLAN OF CARE.
[2018-11-28] MEDS: ASPIRIN 325 MG TABLET PO SCH (08:02)
[2018-11-28] MEDS: TAMSULOSIN 0.4 MG CAP.SR.24H PO SCH (08:02)
[2018-11-28] MEDS: LIPASE/PROTEASE/AMYLASE 1 EACH CAPSULE.DR PO SCH (08:02)
[2018-11-28] MEDS: PANTOPRAZOLE 40 MG TABLET.DR PO SCH (08:02)
[2018-11-28 09:09] VITALS: BP 124/62
[2018-11-28] MEDS: BENAZEPRIL HCL 10 MG TABLET PO SCH (09:09)
[2018-11-28] MEDS: METOPROLOL TARTRATE 25 MG TABLET PO SCH (09:09)
--- NOTE | 2018-11-28 10:36 | NUR ---
MS HYDROELECTRIC STATION OPERATOR CHIEF NOTES PT TO GO HOME, ACCOMPANIED BY SISTER/IZABELA AND SISTER'S SON. PT TOLERATING RA, WITH NO ACUTE RESPIRATORY NOTED. PT DENIES PAIN OR ANY DISCOMFORT AT THE TIME OF DISCHARGE. DISCHARGE PAPERS REVIEWED TO PT AND IZABELA. IZABELA SIGNED IT INCLUDING INVENTORY LIST. ALL BELONGINGS WITH THE PT. ALL NEEDS AND CARE ATTENDED. NO PIV NOTED. SKIN INTACT NO PICTURES TAKEN AND FILED. VS STABLE. CHELI/CASSIDY ESCORTED PT AND FAMILY TO THE LOBBY AND LEFT AT 1020. CN/JERE ABD INVESTMENT BANKER/LW AWARE OF PT'S DISCHARGE.
[2018-11-30 06:06] LABS: *SPE A/G RATIO 1.1 (0.7-1.7); *SPE ALBUMIN 3.3 g/dL (2.9-4.4); *SPE ALPHA-1-GLOBULIN 0.3 g/dL (0.0-0.4); *SPE ALPHA-2-GLOBULIN 0.8 g/dL (0.4-1.0); *SPE BETA GLOBULIN 0.9 g/dL (0.7-1.3); *SPE GLOBULIN, TOTAL 3.1 g/dL (2.2-3.9); *SPE M-SPIKE Not Observed g/dL (Not Observed); *SPEGAMMA GLOBULIN 1.1 g/dL (0.4-1.8)
== END 2018-11-28 10:32 | disposition home or self-care (01) | DRG 682 ==
LOC: ER 03:55 → TELE 08:39 → MED 11-26 08:34
PROVIDERS: ADMIT Internal Medicine; ATTEND Internal Medicine
DX: N17.0 Acute kidney failure with tubular necrosis (principal); I21.A1 Myocardial infarction type 2; K86.1 Other chronic pancreatitis; N13.2 Hydronephrosis with renal and ureteral calculous obstruction; I25.10 Atherosclerotic heart disease of native coronary artery without angina pectoris; I12.9 Hypertensive chronic kidney disease with stage 1 through stage 4 chronic kidney disease, or unspecified chronic kidney disease; E11.22 Type 2 diabetes mellitus with diabetic chronic kidney disease; N18.9 Chronic kidney disease, unspecified; E78.5 Hyperlipidemia, unspecified; Z79.82 Long term (current) use of aspirin; Z79.84 Long term (current) use of oral hypoglycemic drugs; Z95.1 Presence of aortocoronary bypass graft; Z95.2 Presence of prosthetic heart valve
CPT/HCPCS: 36415; 71250-TC; 80048-TC; 80053-TC; 80061-TC; 81000-TC; 82550-TC; 82570-TC; 82962-TC; 83690-TC; 83735-TC; 83970; 84100-TC; 84155; 84155-TC; 84165; 84300-TC; 84484-TC; 85025-TC; 87081-TC; 93307-TC; G0378; J0360; J1815; J2270; J2405; J3475; J7030; J7040